=== PATIENT | male | born 1980 | race Caucasian/White ===

== ENCOUNTER 2018-07-04 19:02 | Emergency (ER) | payer BC ==
[~2018-07-04] VITALS: Ht 177.8 cm; Wt 77.3 kg
[2018-07-04 19:14] VITALS: TEMP 97.1
[2018-07-04 19:39] LABS: BASO % 0.5 % (0.0-2.0); EOS # 0.1 (0.0-0.7); EOS % 1.7 % (0-4.0); GRAN % 67.1 % (42.2-75.2); HEMATOCRIT 45.5 % (42.0-52.0); HEMOGLOBIN 15.6 g/dl (13.5-18.0); LYMPH # 1.4 (1.2-3.4); MEAN CELL VOLUME 88 fl (80.0-100.0); MEAN CORPUSCULAR HEMOGLOBIN 30 pg (27.0-31.0); MEAN CORPUSCULAR HGB CONC 34 g/dl (33.0-37.0); MONO # 0.4 (0.1-0.6); MONO % 7.4 % (1.7-9.3); PLATELET COUNT 263 K/mm3 (130-400); REDCELL DISTRIBUTION WIDTH-CV 12.2 % (11.5-14.5)
[2018-07-04 19:56] LABS: ALANINE AMINOTRANSFERASE 72 U/L (21-72); ALBUMIN 4.3 gm/dL (3.5-5.0); ALKALINE PHOSPHATASE 78 U/L (50-136); ANION GAP 14 mmol/L (7-16); AST,SGOT 40 U/L (15-37); BILIRUBIN,TOTAL 0.9 mg/dL (0.0-1.0); BLOOD UREA NITROGEN 13 mg/dL (9-20); C-REACTIVE PROTEIN 1.5 mg/dL (0.0-0.9); CALCIUM 9.2 mg/dL (8.4-10.2); CARBON DIOXIDE 24 mmol/L (22-30); CHLORIDE 99 mmol/L (98-107); CREATININE, serum 0.89 mg/dL (0.66-1.25); GLUCOSE 131 mg/dL (74-106); LIPASE 81 U/L (23-300); POTASSIUM 3.2 mmol/L (3.4-5.0); SODIUM 138 mmol/L (137-145); TOTAL PROTEIN 7.4 gm/dL (6.4-8.2)
[2018-07-04 20:06] LABS: TROPONIN-I < 0.012 ng/mL (0.000-0.034)
[2018-07-04] MEDS ORDERED: ATIVAN 0.50.5 MG/TAB PO (22:01)
[2018-07-04 22:20] VITALS: BP 127/79; PULSE 84
== END 2018-07-04 22:22 | disposition home or self-care (01) ==
LOC: COL.ER 19:02
PROVIDERS: Emergency Medicine
DX: F41.9 Anxiety disorder, unspecified (principal); R07.89 Other chest pain; K21.9 Gastro-esophageal reflux disease without esophagitis
CPT/HCPCS: J7030

== ENCOUNTER → 2018-09-18 | Outpatient (CLI) | payer BC ==
[~2018-09-18] MED LIST: ATIVAN 0.50.5 MG/TAB PO
== END ==
LOC: COL.RAD 10:41
DX: K21.9 Gastro-esophageal reflux disease without esophagitis (principal)

== ENCOUNTER 2020-03-15 08:21 | Outpatient (RCR) | payer OTHER | END 2020-05-30 | disposition still patient (30) | LOC: WSOH | DX: S90.111A Contusion of right great toe without damage to nail, initial encounter (principal); K21.9 Gastro-esophageal reflux disease without esophagitis; K58.9 Irritable bowel syndrome, unspecified; G47.9 Sleep disorder, unspecified; F17.210 Nicotine dependence, cigarettes, uncomplicated; Y99.0 Civilian activity done for income or pay ==

== ENCOUNTER 2020-08-27 06:12 | Day surgery (SDC) | payer BC ==
[~2020-08-27] VITALS: Ht 177.8 cm; Wt 78.2 kg
[2020-08-27] MEDS ORDERED: KLONOPIN 0.5MG0.5 MG PO (07:01)
[2020-08-27] MEDS ORDERED: PRILOSEC 20MG20 MG PO (07:01)
[2020-08-27 07:03] VITALS: BP 131/91; PULSE 96; TEMP 97.4
[2020-08-27 08:05] VITALS: BP 112/91; PULSE 76; TEMP 97.9
--- NOTE | 2020-08-27 08:05 | NUR ---
Pt returns from Endo procedure via cart. Pt ambulates from cart to recliner with RN assist. Report received from Endo RN. Call light within reach. Monitors on and alarms set. Pt has not complaints of pain or nausea. Pt alert and asking for water.
[2020-08-27 08:15] VITALS: BP 125/93; PULSE 76
[2020-08-27 08:30] VITALS: BP 124/87; PULSE 68
--- NOTE | 2020-08-27 08:55 | NUR ---
Discharge instructions given to pt. All questions answered to his satisfaction. Handed to pt are a thank you card, discharge instructions, diagnosis information, and procedural photos.
--- NOTE | 2020-08-27 09:04 | NUR ---
Pt transferred out of hospital via wheelchair and this RN to private vehicle driven by friend.
== END 2020-08-27 09:04 | disposition home or self-care (01) ==
LOC: SDCO 06:12
DX: D12.5 Benign neoplasm of sigmoid colon (principal); K58.1 Irritable bowel syndrome with constipation; K22.70 Barrett's esophagus without dysplasia; K21.9 Gastro-esophageal reflux disease without esophagitis; F41.9 Anxiety disorder, unspecified; F17.210 Nicotine dependence, cigarettes, uncomplicated; Z20.828 Contact with and (suspected) exposure to other viral communicable diseases
CPT/HCPCS: J2704; J7030